=== PATIENT | female | born 1995 | race Caucasian/White ===

== ENCOUNTER 2019-07-21 09:05 | Inpatient (IN) | payer MEDICAID ==
[~2019-07-21] VITALS: Ht 149.9 cm; Wt 101.8 kg
[2019-07-22] VITALS (18 sets, daily range): BP systolic 119–183; BP diastolic 80–120; PULSE 88–118; TEMP 98.5
--- NOTE | 2019-07-22 18:45 | NUR ---
PT TO UNIT AMBULATORY WITH BOYFRIEND AND MOTHER FOR CYTOTEC INDUCTION. ORIENTED TO ROOM, CHANGED INTO GOWN. THIS NURSE IN ROOM AT 1900. EFMX2 APPLIED, VS OBTAINED.
[2019-07-22] MEDS ORDERED: PRENATAL PO (19:33)
[2019-07-22 20:15] LABS: BASO % 0.2 % (0.0-2.0); EOS # 0.1 (0.0-0.7); GRAN # 8.2 (1.4-6.5); GRAN % 65.8 % (42.2-75.2); HEMATOCRIT 38.8 % (37.0-47.0); HEMOGLOBIN 12.8 g/dl (12.5-16.0); LYMPH % 24.5 % (20.0-51.0); MEAN CELL VOLUME 85 fl (80.0-100.0); MEAN CORPUSCULAR HEMOGLOBIN 28 pg (27.0-31.0); MEAN CORPUSCULAR HGB CONC 33 g/dl (33.0-37.0); MEAN PLATELET VOLUME 10.1 fl (7.4-10.4); MONO % 7.9 % (1.7-9.3); PLATELET COUNT 394 K/mm3 (130-400); RED BLOOD COUNT 4.57 M/mm3 (4.10-5.30); REDCELL DISTRIBUTION WIDTH-CV 15.4 % (11.5-14.5)
[2019-07-22 20:29] LABS: ALBUMIN 3.7 gm/dL (3.5-5.0); BILIRUBIN,TOTAL 0.2 mg/dL (0.0-1.0); CREATININE, serum 0.61 (0.52-1.25); POTASSIUM 4.1 mmol/L (3.4-5.0); TOTAL PROTEIN 7.2 gm/dL (6.4-8.2)
--- NOTE | 2019-07-22 20:30 | NUR ---
2006- DECELERATION INTO THE 80'S. THIS NURSE INTO ROOM, PT REPOSITIONED TO LEFT LATERAL. Thea SIMONS RN CALLED INTO ROOM FOR ASSISTANCE 2007- PT REPOSTIONED SUPINE FOR SVE, UNABLE TO DETERMINE DILITATION, EFFACEMENT, OR STATION. FHT RECOVER TO PREVIOUS BASELINE FOLLOWING 1.5 MINUTE DECELERATION BUT DROP TO THE 90'S AGAIN AFTER APPROXIMATELY 1 MINUTE. 2009- PT REPOSTIONED AGAIN TO LEFT LATERAL, FHT'S REMAIN IN THE 90'S. REPOSTIONED TO RIGHT LATERAL AND O2 APPLIED AT 10L PER FACE MASK. FHT'S RECOVER TO BASELINE OF 145 [address] GREGORY NOTIFIED, WILL COME TO EVALUATE PT. 2014- 10MG HYDRALAZINE IV GIVEN PER DR. GREGORY FOR ELEVATED BP.
--- NOTE | 2019-07-22 21:00 | NUR ---
[id number]- FHT'S TRACING WELL, MODERATE VARIABILITY AND ACCELS PRESENT. 2046- DECELERATION NOTED INTO THE 80'S, NO CONTRACTIONS NOTED.DR. GREGORY AND THIS NURESE IN ROOM. DECELERATION LASTING APPROXIMATELY 1.5 MINUTES BEFORE RETURNING TO BASELINE OF 145-[address] GREGORY BEGINS DISCUSSING PLAN OF CARE. RECOMMENDING C/S DUE TO INABILITY TO BEGIN INDUCTION PROCESS, DECELERATIONS, AND ELEVATED BP SINCE ARRIVAL. PT AND FOB AGREE TO PLAN OF CARE. QUESTIONS ENCOURAGED AND ANSWERED.
--- NOTE | 2019-07-22 21:16 | NUR ---
2107- ABDOMINAL SCRUB STARTED, DIFFICULTY TRACING FHT'S FOR 3 MINUTES DURING THIS TIME. FM AUDIBLE. 2115- MONITORING DC'D AT THIS TIME, PT AMBULATED TO OR FOR C/S
--- NOTE | 2019-07-22 21:27 | NUR ---
TIME ON STRIP 1 HOUR AHEAD. PT TO OR FOR C/S, ON MONITOR AT 2117. SITTING UP FOR SPINAL PLACEMENT. FHT TRACING IN THE 120'S. FOLLOWING SPINAL PLACEMENT PT REPOSITIONED IN LEFT WEDGE, FHT'S INCREASE TO 150'S 2126- MONITORING DC'D FOR ABDOMINAL PREP.
[2019-07-22 21:55] LABS: COLLECTION METHOD CLEAN CATCH
[2019-07-22 22:04] LABS: MUCOUS Present /lpf; PH 6 (5-8); SQUAMOUS EPITHELIAL None Seen /hpf; URINE APPEARANCE Hazy; URINE BACTERIA None Seen /hpf; URINE BILIRUBIN Negative (NEGATIVE); URINE BLOOD Negative (NEGATIVE); URINE COLOR Yellow; URINE GLUCOSE Negative (NEGATIVE); URINE KETONE Negative (NEGATIVE); URINE LEUKOCYTE ESTERASE Negative (NEGATIVE); URINE NITRATE Negative (NEGATIVE); URINE PROTEIN(semi-quant) 2+ (NEGATIVE); URINE RBC 0-2 /hpf; URINE UROBILINOGEN Negative (NEGATIVE)
[2019-07-23] VITALS (10 sets, daily range): BP systolic 123–150; BP diastolic 68–91; PULSE 87–101; TEMP 97.8–98.7
[2019-07-23 08:05] LABS: BASO % 0.2 % (0.0-2.0); EOS # 0.1 (0.0-0.7); EOS % 0.5 % (0-4.0); GRAN # 10.2 (1.4-6.5); GRAN % 69.9 % (42.2-75.2); HEMATOCRIT 37.4 % (37.0-47.0); HEMOGLOBIN 12.3 g/dl (12.5-16.0); LYMPH # 3.4 (1.2-3.4); LYMPH % 23.1 % (20.0-51.0); MEAN CELL VOLUME 86 fl (80.0-100.0); MEAN CORPUSCULAR HEMOGLOBIN 28 pg (27.0-31.0); MEAN CORPUSCULAR HGB CONC 33 g/dl (33.0-37.0); MEAN PLATELET VOLUME 9.8 fl (7.4-10.4); MONO # 0.9 (0.1-0.6); MONO % 5.9 % (1.7-9.3); PLATELET COUNT 335 K/mm3 (130-400); RED BLOOD COUNT 4.35 M/mm3 (4.10-5.30); REDCELL DISTRIBUTION WIDTH-CV 15.5 % (11.5-14.5)
[2019-07-23] MEDS ORDERED: IBU800 M1 PO (08:15)
[2019-07-23] MEDS ORDERED: PERCOCET 325 MG1 TA2 PO (08:15)
[2019-07-23 08:23] LABS: ALBUMIN 3.2 gm/dL (3.5-5.0); BILIRUBIN,TOTAL 0.2 mg/dL (0.0-1.0); CALCIUM 8.5 mg/dL (8.4-10.2); CREATININE, serum 0.76 (0.52-1.25); POTASSIUM 4.1 mmol/L (3.4-5.0); TOTAL PROTEIN 6.3 gm/dL (6.4-8.2)
[2019-07-24 08:15] VITALS: BP 143/96; PULSE 96; TEMP 98.1
[2019-07-24] MEDS ORDERED: PROCARDIA XL 3030 MG PO (08:20)
[2019-07-24 08:45] VITALS: BP 107/61; PULSE 97; TEMP 98.5
[2019-07-24 12:00] VITALS: BP 142/86; PULSE 100; TEMP 98.6
[2019-07-24 17:00] VITALS: BP 141/82; PULSE 108; TEMP 98.8
[2019-07-24 20:00] VITALS: BP 138/75; PULSE 104; TEMP 97.7
[2019-07-25 07:49] LABS: MEAN CELL VOLUME 87 fl (80.0-100.0); MEAN CORPUSCULAR HEMOGLOBIN 28 pg (27.0-31.0); MEAN CORPUSCULAR HGB CONC 32 g/dl (33.0-37.0); MEAN PLATELET VOLUME 9.7 fl (7.4-10.4); PLATELET COUNT 359 K/mm3 (130-400); RED BLOOD COUNT 3.88 M/mm3 (4.10-5.30); REDCELL DISTRIBUTION WIDTH-CV 15.9 % (11.5-14.5)
[2019-07-25 07:50] LABS: HEMATOCRIT 33.9 % (37.0-47.0)
[2019-07-25 08:00] VITALS: BP 142/83; PULSE 94; TEMP 97.4
[2019-07-25 08:04] LABS: ALBUMIN 3.2 gm/dL (3.5-5.0); BILIRUBIN,TOTAL 0.1 mg/dL (0.0-1.0); CALCIUM 8.9 mg/dL (8.4-10.2); CREATININE, serum 0.67 (0.52-1.25); POTASSIUM 4.1 mmol/L (3.4-5.0); TOTAL PROTEIN 6.3 gm/dL (6.4-8.2)
== END 2019-07-25 14:40 | disposition home or self-care (01) | DRG 788 ==
LOC: OB 07-22 09:05 → EDBD 07-22 18:38 → LDR 07-22 18:38 → OB 07-22 18:38
PROVIDERS: Obstetrics & Gynecology; ADMIT Student in an Organized Health Care Education/Training Program
PROC: 10D00Z1 Extraction of Products of Conception, Low, Open Approach (ICD-10-PCS; principal; 2019-07-22)
DX: O76 Abnormality in fetal heart rate and rhythm complicating labor and delivery (principal); O48.0 Post-term pregnancy; O99.214 Obesity complicating childbirth; O14.94 Unspecified pre-eclampsia, complicating childbirth; Z3A.40 40 weeks gestation of pregnancy; Z37.0 Single live birth; O99.284 Endocrine, nutritional and metabolic diseases complicating childbirth; O99.62 Diseases of the digestive system complicating childbirth; O77.0 Labor and delivery complicated by meconium in amniotic fluid; E66.9 Obesity, unspecified; E28.2 Polycystic ovarian syndrome; E55.9 Vitamin D deficiency, unspecified; K21.9 Gastro-esophageal reflux disease without esophagitis; K92.9 Disease of digestive system, unspecified; Z90.721 Acquired absence of ovaries, unilateral
CPT/HCPCS: J0360; J0690; J1885; J2370; J2405; J2704; J3010; J7120

== ENCOUNTER 2020-05-20 13:00 | Outpatient (RCR) | payer MEDICAID ==
[~2020-05-20 13:00] MED LIST: IBU800 M1 PO; PERCOCET 325 MG1 TA2 PO; PRENATAL PO; PROCARDIA XL 3030 MG PO
== END 2020-06-14 09:42 | disposition home or self-care (01) ==
LOC: WSC 13:00
DX: M40.56 Lordosis, unspecified, lumbar region (principal); R29.3 Abnormal posture

== ENCOUNTER → 2020-12-30 | Outpatient (CLI) | payer MEDICAID | LOC: MC.RAD 08:59 | DX: N64.4 Mastodynia (principal) ==

== ENCOUNTER → 2022-02-19 | Outpatient (CLI) | payer MEDICAID | LOC: COL.CARD 09:20 | DX: R00.2 Palpitations (principal) ==

== ENCOUNTER → 2022-05-18 | Outpatient (CLI) | payer MEDICAID | LOC: COL.RAD 14:00 | DX: J34.89 Other specified disorders of nose and nasal sinuses (principal); H93.A9 Pulsatile tinnitus, unspecified ear | CPT/HCPCS: Q9967 ==

== ENCOUNTER 2024-01-23 09:50 | Inpatient (IN) | payer MEDICAID | END 2024-01-25 13:55 | disposition home or self-care (01) | DRG 788 | LOC: LDRO 09:50 → OB 09:51 | PROVIDERS: ADMIT Student in an Organized Health Care Education/Training Program | PROC: 10D00Z1 Extraction of Products of Conception, Low, Open Approach (ICD-10-PCS; principal; 2024-01-23) | DX: O34.211 Maternal care for low transverse scar from previous cesarean delivery (principal); Z3A.39 39 weeks gestation of pregnancy; Z37.0 Single live birth; O99.62 Diseases of the digestive system complicating childbirth; K21.9 Gastro-esophageal reflux disease without esophagitis; O99.214 Obesity complicating childbirth; E74.39 Other disorders of intestinal carbohydrate absorption; O99.284 Endocrine, nutritional and metabolic diseases complicating childbirth; E28.2 Polycystic ovarian syndrome; O77.0 Labor and delivery complicated by meconium in amniotic fluid ==